=== PATIENT | male | born 1970 | race Caucasian/White ===

== ENCOUNTER 2020-10-30 13:52 | Emergency (ER) | payer MEDICAID, SELFPAY ==
--- NOTE | 2020-10-30 13:52 | ECG_ITS ---
APPROVED REPORT Exam: Resting ECG HR:73 bpm ECG Measurements Heart Rate 73 AXES FL 176 P 15 QRSd 88 QRS 38 QT 338 T 64 QTc 372 Conclusion Normal sinus rhythm Nonspecific T wave abnormality Abnormal ECG Electronically signed by : Sagar Quinteros, 10/31/2020 07:15:32
[2020-10-30 13:58] VITALS: BP 137/87; PULSE 72; RESP 16; O2SAT 95; BMI 33.7
--- NOTE | 2020-10-30 13:58 | CT_ITS ---
PROCEDURE: CT HEAD/BRAIN WO CON CLINICAL INDICATION: L sided facial droop COMPARISON: No exams were available for comparison TECHNIQUE: Axial images obtained. All CT scans at the facility use one or more dose reduction, viz: automated exposure control, ma/kV adjustment per patient size (including targeted exams where dose is matched to indication, i.e. head), or iterative reconstruction technique. FINDINGS: No midline shift, mass effect, intracranial hemorrhage, hydrocephalus, or extra-axial fluid collection is evident. The calvarium has an unremarkable appearance. No mastoid effusion. No sinus air-fluid level. IMPRESSION: No acute intracranial abnormality. Findings discussed by telephone as a critical result with Dr. Sommers on 10/30/2020 at 1416 hours. Dictated by: Greg Samuels MD 10/30/2020 14:16 Greg Samuels MD in [facility] 10/30/2020 14:16
--- NOTE | 2020-10-30 14:01 | PC.NURSE ---
fsbs [address]
--- NOTE | 2020-10-30 14:04 | XR_ITS ---
PROCEDURE: XR CHEST PORTABLE CLINICAL HISTORY: chest pain COMPARISON: No exams were available for comparison FINDINGS: Some mild underlying COPD changes with mild bibasilar scar versus atelectasis. No definite focal infiltrate. Heart size normal. No pleural effusion or pneumothorax. No acute bony abnormality. IMPRESSION: Some underlying COPD changes with mild bibasilar scar versus atelectasis. No focal infiltrate or overt failure. Dictated by: Greg Samuels MD 10/30/2020 14:18 Greg Samuels MD in [facility] 10/30/2020 14:18
[2020-10-30 14:07] LABS: POC Glucose,Bedside 187 (70-110)
[2020-10-30 14:13] LABS: Basophils # 0.1 K/mm3 (0-0.2); Basophils % 0.9 % (0.1-2.0); Eosinophils # 0.4 K/mm3 (0.0-0.4); Eosinophils % 2.9 % (0.1-12.0); Hematocrit 44.3 % (42.0-52.0); Hemoglobin 15.5 g/dL (14.1-18.0); Lymphocytes # 3.6 K/mm3 (0.7-4.5); Lymphocytes % 26.5 % (10-50); Mean Corpuscular Hemoglobin 32.6 pg (27.0-31.2); Mean Corpuscular Volume 92.9 fl (80-94); Mean Platelet Volume 7.8 fl (7.4-10.4); Monocytes # 1.4 K/mm3 (0.1-1.0); Monocytes % 10.3 % (1.7-9.3); Neutrophils # 8.1 K/mm3 (1.8-7.8); Neutrophils % 59.4 % (37.0-80.0); Platelet Count 289 K/mm3 (142-424); Red Blood Count 4.77 M/mm3 (4.60-6.20); White Blood Count 13.6 K/mm3 (4.8-10.8)
[2020-10-30 14:21] LABS: Lipase 88 U/L (23-300)
[2020-10-30 14:23] LABS: Alanine Aminotransferase 62 U/L (12-78); Albumin Level 4.1 g/dl (3.5-5.0); Albumin/Globulin Ratio 1.4 (1.1-1.8); Alkaline Phosphatase 118 U/L (38-126); Anion Gap 11.9 mEq/L (5-15); Aspartate Amino Transferase 38 U/L (17-59); Bilirubin,Total 0.5 mg/dl (0.2-1.3); Blood Urea Nitrogen 12 mg/dl (9-20); Calcium 8.5 mg/dl (8.4-10.2); Carbon Dioxide 23 mmol/L (22.0-30.0); Chloride 104 mmol/L (98-107); Creatinine Clearance Estimated 206 mL/min (50-200); Estimated Glomerular Filt Rate 103 ml/min (>60); GFR (African American) 125 ML/MIN (>60); Glucose 194 mg/dl (74-100); Potassium 3.9 mmoL/L (3.5-5.1); Sodium 135 mmol/L (136-145); Total Protein,Serum 7.1 g/dl (6.3-8.2)
--- NOTE | 2020-10-30 14:27 | [facility].EDGENADL ---
ED Disposition Clinical Impression: Atypical chest pain, Facial asymmetry Eye foreign body Qualifiers: Encounter type: initial encounter Laterality: left Qualified Code(s): T15.92XA - Foreign body on external eye, part unspecified, left eye, initial encounter Disposition: Home, Self-Care Condition on Discharge: Good Additional Instructions: Go directly to [facility] for treatment of the foreign body in your eye. Return to the emergency department for any acute new concerns. - Critical Care Critical Care Time: No Attestation: On 10/30/20, the high probability of a clinically significant, sudden or life threatening deterioration of the following system(s) required my full and direct attention, intervention and personal management. The time I documented below is in addition to time spent performing reported procedures but includes the following listed in this critical care notation. Medical Decision Making - Medical Records Medical records reviewed: Yes: I reviewed the patient's medical records. - Javi Inquiry Pt receiving controlled substance: No Vital Signs: 10/30/20 13:58 Pulse Rate [Left Radial] 72 Respiratory Rate 16 Blood Pressure [Left Arm] 137/87 Blood Pressure Mean [Left Arm] 103 Blood Pressure Source [Left Arm] Automatic Cuff Blood Pressure Position [Left Arm] Sitting 02 Sat by Pulse Oximetry 95 Oxygen Delivery Method Room Air - Lab Data Lab results reviewed: Yes: I reviewed the patient's lab results. Lab Results 10/30/20 14:00: WBC 13.6 H, RBC 4.77, Hgb 15.5, Hct 44.3, MCV 92.9, MCH 32.6 H, MCHC 35.0, RDW 13.0, Plt Count 289, MPV 7.8, Neut % (Auto) 59.4, Lymph % (Auto) 26.5, [place] % (Auto) 10.3 H, Eos % (Auto) 2.9, Baso % (Auto) 0.9, Neut # (Auto) 8.1 H, Lymph # (Auto) 3.6, [place] # (Auto) 1.4 H, Eos # (Auto) 0.4, Baso # (Auto) 0.1 10/30/20 14:00: Sodium 135 L, Potassium 3.9, Chloride 104, Carbon Dioxide 23, Anion Gap 11.9, BUN 12, Creatinine 0.80, Estimated Creat Clear 206, Estimated GFR 103, Est GFR ( Amer) 125, Glucose 194 H, Calcium 8.5, Total Bilirubin 0.5, AST 38, ALT 62, Alkaline Phosphatase 118, Total Protein 7.1, Albumin 4.1, Globulin 3.0, Albumin/Globulin Ratio 1.4 10/30/20 14:00: Troponin I < 0.01, Lipase 88 10/30/20 14:00: POC Glucose 187 H 10/30/20 14:30: PT 10.6, INR 0.89 L, APTT 25.1 Result diagrams: 10/30/20 14:00 10/30/20 14:00 Orders (Tests/Meds): ED MEDICATIONS Generic Name Dose Route Start Last Admin Trade Name Freq PRN Reason Stop Dose Admin Nitroglycerin 0.4 mg 10/30/20 14:04 Nitroglycerin 0.4mg Sl Tablet SL 10/31/20 14:04 [id number] PRN Chest Pain Discontinued Medications Generic Name Dose Route Start Last Admin Trade Name Freq PRN Reason Stop Dose Admin Aspirin 324 mg 10/30/20 14:04 Aspirin 81mg Chewable Tablet PO 10/30/20 14:05 ONCE ONE ORDERS Category Date Time Status Troponin I Q3H Lab 10/30/20 17:15 Ordered Troponin I Q3H Lab 10/30/20 20:15 Ordered - CT Data CT Scan: Head Time Received: 14:[address] Reviewed: Yes: I discussed the CT results w/the radiologist Preliminary Findings: Normal/NAD - ECG Data Tracing #1 EKG at 1352 shows a sinus rhythm with a rate of 73. No acute ST segment elevation or depression. No hyperacute T waves. Normal intervals. EKG interpreted by me. Medical Decision Narrative: Patient is not a very good historian which complicates this all history taking and piecing together patient's true acute issue today. His facial asymmetry is secondary to light sensitivity in the right eye and squinting on the right making the left look asymmetric, however when he closes his eyes, he is symmetric and smile was symmetric. There is no lateralizing motor or sensory changes on exam. His CT head is negative. He was out in the yard yesterday and on my exam it appears there is a foreign body at the 10 o'clock position over the iris. He is not sure what this might be. There is no
[2020-10-30 14:37] LABS: Troponin I < 0.01 ng/ml (0.00-0.034)
[2020-10-30 14:58] LABS: Activated Partial Thrombo Time 25.1 seconds (22.8-30.6); Prothrombin Time 10.6 seconds (10.1-12.5)
[2020-10-30 14:59] LABS: INR 0.89 (0.9-1.1)
[2020-10-30 15:40] VITALS: BP 118/79; PULSE 72; RESP 16; TEMP 36.7; O2SAT 95
== END 2020-10-30 15:40 | disposition home or self-care (01) ==
PROVIDERS: Emergency Provider Emergency Medicine
DX: R07.89 Other chest pain (principal); T15.92XA Foreign body on external eye, part unspecified, left eye, initial encounter; I10 Essential (primary) hypertension; E78.5 Hyperlipidemia, unspecified; E11.9 Type 2 diabetes mellitus without complications; Q67.0 Congenital facial asymmetry; F17.210 Nicotine dependence, cigarettes, uncomplicated; Z79.899 Other long term (current) drug therapy
CPT/HCPCS: 70450; 71045; 80053; 82962; 83690; 84484; 85025; 85610; 85730; 93005; 99282

== ENCOUNTER → 2021-07-15 12:43 | Outpatient (CLI) | payer MEDICAID, SELFPAY ==
[2021-07-15 14:02] LABS: Basophils # 0.1 K/mm3 (0-0.2); Basophils % 1.2 % (0.1-2.0); Eosinophils # 0.3 K/mm3 (0.0-0.4); Eosinophils % 2.7 % (0.1-12.0); Hematocrit 50.9 % (42.0-52.0); Hemoglobin 16.3 g/dL (14.1-18.0); Lymphocytes # 3.2 K/mm3 (0.7-4.5); Lymphocytes % 30.6 % (10-50); Mean Corpuscular Hemoglobin 32.5 pg (27.0-31.2); Mean Corpuscular Volume 101.4 fl (80-94); Monocytes # 1.2 K/mm3 (0.1-1.0); Monocytes % 11.9 % (1.7-9.3); Neutrophils # 5.5 K/mm3 (1.8-7.8); Neutrophils % 53.6 % (37.0-80.0); Platelet Count 301 K/mm3 (142-424); Red Blood Count 5.01 M/mm3 (4.60-6.20); Red Cell Distribution Width 13.6 % (11.5-17.5); White Blood Count 10.3 K/mm3 (4.8-10.8)
[2021-07-15 16:43] LABS: Alanine Aminotransferase 134 U/L (12-78); Albumin Level 4.3 g/dl (3.5-5.0); Albumin/Globulin Ratio 1.5 (1.1-1.8); Alkaline Phosphatase 104 U/L (38-126); Anion Gap 11.4 mEq/L (5-15); Aspartate Amino Transferase 72 U/L (17-59); Bilirubin,Total 0.7 mg/dl (0.2-1.3); Blood Urea Nitrogen 15 mg/dl (9-20); Calcium 9.1 mg/dl (8.4-10.2); Carbon Dioxide 25 mmol/L (22.0-30.0); Chloride 104 mmol/L (98-107); Chol/HDL Ratio 7.2 (1-3.5); Cholesterol 239 mg/dl (140-200); Estimated Glomerular Filt Rate 120 ml/min (>60); GFR (African American) 145 ML/MIN (>60); Globulin 2.9 g/dL (1.3-3.2); Glucose 157 mg/dl (74-100); HDL Cholesterol 33 mg/dl (40-60); Potassium 5.4 mmoL/L (3.5-5.1); Sodium 135 mmol/L (136-145); Total Protein,Serum 7.2 g/dl (6.3-8.2); Triglycerides 133 mg/dl (30-150); VLDL Cholesterol 27 mg/dL (0-40)
[2021-07-15 17:01] LABS: 25-OH Vitamin D, Total 13.1 ng/mL (30-100); T4 (Thyroxine) 11.4 ug/dl (5.53-11.0)
[2021-07-15 17:14] LABS: Thyroid Stimulating Hormone 1.12 uIU/mL (0.465-4.68)
[2021-07-15 17:17] LABS: Hemoglobin A1C 7.2 % (4.0-6.0)
== END ==
PROVIDERS: Visit Provider Nurse Practitioner Family
DX: I10 Essential (primary) hypertension (principal); E78.5 Hyperlipidemia, unspecified; E55.9 Vitamin D deficiency, unspecified; Z79.899 Other long term (current) drug therapy
CPT/HCPCS: 36415; 80053; 80061; 82306; 83036; 84436; 84443; 85025

== ENCOUNTER 2021-08-30 12:56 | Emergency (ER) | payer MEDICAID, SELFPAY ==
--- NOTE | 2021-08-30 12:53 | ECG_ITS ---
APPROVED REPORT Exam: Resting ECG HR:69 bpm ECG Measurements Heart Rate 69 AXES TX 164 P 50 QRSd 90 QRS 19 QT 334 T 83 QTc 354 Conclusion SINUS RHYTHM WITH SINUS ARRHYTHMIA NONSPECIFIC T-WAVE ABNORMALITY BORDERLINE ECG UNCONFIRMED REPORT Electronically signed by : Sagar Quinteros MD 09/01/2021 10:14:25
[2021-08-30 12:57] VITALS: BP 124/77; PULSE 75; RESP 19; TEMP 36.3; O2SAT 96; BMI 34.7
--- NOTE | 2021-08-30 13:04 | XR_ITS ---
FINAL REPORT CLINICAL HISTORY: chest hurting COMPARISON: 10/30/2020 FINDINGS: 2 views of the chest were obtained . The heart is normal in size. The mediastinum is within normal limits. The lungs are clear. There is no pneumothorax. There are postoperative changes noted at the left upper quadrant. Osseous structures are unremarkable. IMPRESSION: No acute cardiopulmonary process. Reviewed, Interpreted and Dictated by Lasha Weir III, MD Transcribed by Keisha Petit Authenticated by Lasha Weir III, MD on 08/30/2021 05:12:09 PM [facility]
[2021-08-30 13:18] LABS: Basophils # 0.2 K/mm3 (0-0.2); Basophils % 2.1 % (0.1-2.0); Eosinophils # 0.3 K/mm3 (0.0-0.4); Eosinophils % 2.9 % (0.1-12.0); Hematocrit 49.2 % (42.0-52.0); Hemoglobin 16.4 g/dL (14.1-18.0); Lymphocytes % 29.3 % (10-50); Mean Corpuscular HGB Conc 33.4 g/dL (31.8-35.4); Mean Corpuscular Volume 98.9 fl (80-94); Mean Platelet Volume 8.4 fl (7.4-10.4); Monocytes # 1.1 K/mm3 (0.1-1.0); Monocytes % 10.8 % (1.7-9.3); Neutrophils # 5.6 K/mm3 (1.8-7.8); Neutrophils % 54.8 % (37.0-80.0); Platelet Count 332 K/mm3 (142-424); Red Blood Count 4.97 M/mm3 (4.60-6.20); Red Cell Distribution Width 13.3 % (11.5-17.5); White Blood Count 10.3 K/mm3 (4.8-10.8)
[2021-08-30 13:19] LABS: Chloride 107 mmol/L (98-107); Sodium 136 mmol/L (136-145)
[2021-08-30 13:22] LABS: Anion Gap 8.3 mEq/L (5-15); Blood Urea Nitrogen 13 mg/dl (9-20); Calcium 8.2 mg/dl (8.4-10.2); Carbon Dioxide 25 mmol/L (22.0-30.0); Creatinine Clearance Estimated 233 mL/min (50-200); Estimated Glomerular Filt Rate 120 ml/min (>60); GFR (African American) 145 ML/MIN (>60); Glucose 146 mg/dl (74-100); Potassium 4.3 mmoL/L (3.5-5.1)
[2021-08-30 13:30] VITALS: BP 119/67; PULSE 64; RESP 18; O2SAT 97
[2021-08-30 13:35] LABS: Troponin I < 0.01 ng/ml (0.00-0.034)
--- NOTE | 2021-08-30 13:53 | HMH.EDCP ---
ED Disposition Clinical Impression: Atypical chest pain Disposition: Home, Self-Care Condition on Discharge: Good Instructions: DI for Atypical Chest Pain Referrals: Lydia Laguna APRN [Primary Care Provider] - Thuan Membreno MD [Staff Physician] - - Critical Care Critical Care Time: No Attestation: On 08/30/21, the high probability of a clinically significant, sudden or life threatening deterioration of the following system(s) required my full and direct attention, intervention and personal management. The time I documented below is in addition to time spent performing reported procedures but includes the following listed in this critical care notation. Medical Decision Making - Medical Records Medical records reviewed: Yes: I reviewed the patient's medical records. - Javi Inquiry Pt receiving controlled substance: No Vital Signs: 08/30/21 12:57 08/30/21 13:30 Temperature 97.4 F L Temperature Source Oral Pulse Rate 64 Pulse Rate [Left Radial] 75 Respiratory Rate 19 18 Blood Pressure 119/67 Blood Pressure [Right Arm] 124/77 Blood Pressure Mean 84 Blood Pressure Mean [Right Arm] 92 Blood Pressure Source [Right Arm] Automatic Cuff Blood Pressure Position [Right Arm] Sitting 02 Sat by Pulse Oximetry 96 97 Oxygen Delivery Method Room Air - Lab Data Lab Results 08/30/21 13:00: WBC 10.3, RBC 4.97, Hgb 16.4, Hct 49.2, MCV 98.9 H, MCH 33.0 H, MCHC 33.4, RDW 13.3, Plt Count 332, MPV 8.4, Neut % (Auto) 54.8, Lymph % (Auto) 29.3, [place] % (Auto) 10.8 H, Eos % (Auto) 2.9, Baso % (Auto) 2.1 H, Neut # (Auto) 5.6, Lymph # (Auto) 3.0, [place] # (Auto) 1.1 H, Eos # (Auto) 0.3, Baso # (Auto) 0.2 08/30/21 13:00: Sodium 136, Potassium 4.3, Chloride 107, Carbon Dioxide 25, Anion Gap 8.3, BUN 13, Creatinine 0.70, Estimated Creat Clear 233, Estimated GFR 120, Est GFR ( Amer) 145, Glucose 146 H, Calcium 8.2 L, Troponin I < 0.01 Result diagrams: 08/30/21 13:00 04/18/22 13:00 Orders (Tests/Meds): ED MEDICATIONS Generic Name Dose Route Start Last Admin Trade Name Freq PRN Reason Stop Dose Admin Sodium Chloride 10 ml 08/30/21 13:04 Sodium Chloride 0.9% 10ml Flush Syringe IV 09/29/21 13:03 NEEDED PRN Maintain IV Site Discontinued Medications Generic Name Dose Route Start Last Admin Trade Name Freq PRN Reason Stop Dose Admin Ketorolac Tromethamine 30 mg 08/30/21 13:08 08/30/21 13:20 Ketorolac 30mg/Ml Vial IV 08/30/21 13:09 30 mg ONCE ONE Administration ORDERS Category Date Time Status XR chest 2V Stat Exams 08/30/21 13:04 Taken Troponin I Q3H Lab 08/30/21 16:15 Ordered Troponin I Q3H Lab 08/30/21 19:15 Ordered - Radiology Data #1 Image(s): Chest Image Reviewed: Yes I reviewed the patient's radiology results, Yes I reviewed the patient's radiology image, Yes I reviewed the patient's radiology image w/the ED provider Preliminary Findings: Normal/NAD, No Fracture Seen - ECG Data Tracing #1 I reviewed this ECG and interpreted as documented below: No ventricular rate of 69 bpm, CA interval 164 ms, normal QTC. Sinus rhythm with nonspecific changes. ECG initial impression date: 08/30/21 ECG initial impression time: 12:53 - Reevaluation(s) Time: 14:50 Reevaluation #1: On reevaluation, the patient is feeling better. Troponin negative. Work-up unremarkable. Needs a follow-up with PCP. Given strict return precaution. Verbalized understanding. Medical Decision Narrative: 51-year-old male presented to the emergency department with some chronic issues. Patient has had some chest discomfort as well as headache. I do believe this could likely be a chronic injury secondary to when he fell off of his tractor. He is low risk for acute coronary syndrome based on heart score. Hemodynamically stable. Work-up initiated. Chest Pain HPI - General Chief Complaint: Chest Pain Stated Complaint: chest pain Time Seen by Provider: 08/30
[2021-08-30 15:12] VITALS: BP 123/81; PULSE 61; RESP 18; TEMP 36.8; O2SAT 97
== END 2021-08-30 15:14 | disposition home or self-care (01) ==
PROVIDERS: Emergency Provider Emergency Medicine; PCP Nurse Practitioner Family
DX: R07.89 Other chest pain (principal); R94.31 Abnormal electrocardiogram [ECG] [EKG]; R06.02 Shortness of breath; R20.2 Paresthesia of skin; R51.9 Headache, unspecified; I10 Essential (primary) hypertension; E78.5 Hyperlipidemia, unspecified; E11.9 Type 2 diabetes mellitus without complications; N52.9 Male erectile dysfunction, unspecified; F17.210 Nicotine dependence, cigarettes, uncomplicated; Z79.82 Long term (current) use of aspirin; Z79.84 Long term (current) use of oral hypoglycemic drugs
CPT/HCPCS: 71046; 80048; 84484; 85025; 93005; 96374; 99285

== ENCOUNTER → 2022-01-18 12:06 | Outpatient (CLI) | payer MEDICAID, SELFPAY ==
--- NOTE | 2022-01-18 12:24 | XR_ITS ---
FINAL REPORT CLINICAL HISTORY: ABN LEVELS OF SERUM ALKALINE PHOSPHATASE COMPARISON: August 30, 2021 FINDINGS: Two views of the chest were obtained. The heart size and pulmonary vascularity are within normal limits. The mediastinum is normal. There is a new or worse nodule in the right mid lung measuring 8 mm. There is no pneumothorax. The bony thorax is intact. IMPRESSION: New or worse right midlung nodule. Recommend chest CT. Reviewed, Interpreted and Dictated by Lasha Weir III, MD Transcribed by Donavan Epstein Authenticated and [facility]
== END ==
PROVIDERS: PCP Nurse Practitioner Family; Visit Provider Nurse Practitioner Family
DX: R74.8 Abnormal levels of other serum enzymes (principal)
CPT/HCPCS: 71046

== ENCOUNTER → 2022-02-02 10:42 | Outpatient (CLI) | payer MEDICAID, SELFPAY ==
--- NOTE | 2022-02-02 10:47 | CT_ITS ---
FINAL REPORT TECHNIQUE: Axial images were obtained through the chest without contrast. CLINICAL HISTORY: PULMONARY NODULE COMPARISON: Plain film dated January 18, 2022 FINDINGS: There is no mediastinal mass or adenopathy. The heart size is normal. There is no pericardial or pleural effusion. Limited images of the upper abdomen demonstrate moderate fatty infiltration of the liver. There is a tiny nonobstructing right renal stone. There are a few nonspecific enlarged lymph nodes in the upper mid abdomen measuring up to 1.8 x 1.1 cm. There are small calcified granulomas in both lungs. There is no mass corresponding to the abnormality on the recent x-ray. IMPRESSION: No pulmonary mass corresponding to the radiographic abnormality. Moderate fatty liver. Reviewed, Interpreted and Dictated by Donnie Saucedo MD Transcribed by Donavan Epstien Authenticated and [facility]
== END ==
PROVIDERS: PCP Nurse Practitioner Family; Visit Provider Nurse Practitioner Family
DX: R91.1 Solitary pulmonary nodule (principal)
CPT/HCPCS: 71250